=== PATIENT | male | born 1995 | race Caucasian/White ===

== ENCOUNTER 2017-07-07 20:07 | Emergency (ER) | payer BC ==
[~2017-07-07] VITALS: Ht 190.5 cm; Wt 98.9 kg
[~2017-07-07 20:07] MED LIST: AZITHROMYCIN250 MG; CLINDAMYCIN HC300 MG PO; DEXAMETHASONE4 MG PO; IBUPROFEN200 M1 PO; NORCO 5-325 TA1 EACH PO; ZOFRAN ODT4 MG PO; ZOFRAN4 MG PO
[2017-07-07] MEDS ORDERED: SUDOGEST120 MG PO (20:17)
[2017-07-07] MEDS ORDERED: ESCITALOPRAM OX20 MG PO (20:17)
[2017-07-07] MEDS ORDERED: ZINC50 M2 PO (20:18)
[2017-07-07] MEDS ORDERED: VITAMIN D2000 UNIT PO (20:19)
[2017-07-08] MEDS ORDERED: ONDANSETRON ODT8 MG PO (14:47)
== END 2017-07-07 23:45 | disposition home or self-care (01) ==
LOC: ED 20:07
DX: B34.9 Viral infection, unspecified (principal); F17.200 Nicotine dependence, unspecified, uncomplicated; F41.9 Anxiety disorder, unspecified; F32.9 Major depressive disorder, single episode, unspecified; Z79.899 Other long term (current) drug therapy; Z98.890 Other specified postprocedural states
CPT/HCPCS: 82945; 84157; 85032; 87070; 87077; 87186; 87205; 89051; 99283

== ENCOUNTER 2017-07-08 12:59 | Emergency (ER) | payer BC ==
[~2017-07-08] VITALS: Ht 190.5 cm; Wt 98.9 kg
[~2017-07-08 12:59] MED LIST changes: +ESCITALOPRAM OX20 MG PO; +SUDOGEST120 MG PO; +VITAMIN D2000 UNIT PO; +ZINC50 M2 PO
[2017-07-08] MEDS ORDERED: ONDANSETRON ODT8 MG PO (14:47)
== END 2017-07-08 15:11 | disposition home or self-care (01) ==
LOC: ED 12:59
DX: R10.9 Unspecified abdominal pain (principal); F32.9 Major depressive disorder, single episode, unspecified; Z98.890 Other specified postprocedural states; Z79.899 Other long term (current) drug therapy
CPT/HCPCS: 74177; 80053; 82150; 83690; 85025; 96361; 96374; 96375; 99284; J1170; J2405; J7030; Q9967

== ENCOUNTER 2017-07-11 15:17 | Inpatient (IN) | payer BC ==
[~2017-07-11] VITALS: Ht 190.5 cm; Wt 101.6 kg
[~2017-07-11 15:17] MED LIST changes: +ONDANSETRON ODT8 MG PO
--- NOTE | 2017-07-11 20:00 | NUR ---
RECEIVED REPORT AT 1900. FOUND PT IN BED RESTING. PT WAS COMPLAINING OF HEADACHE. PT IS STILL DUE TO VOID.
--- NOTE | 2017-07-11 22:12 | NUR ---
V/S ARE WDL, PO TYLENOL WAS GIVEN FOR HEADACHE PER ORDER. PT IS STILL DUE TO VOID. PUPILS WERE 5MM BUT REACTIVE, PERRLA WAS POSITIVE, STRENGTH IS +5. ALL LOBES ARE CLEAR, BOWEL TONES ARE ACTIVE. NO NEW PROBLEMS NOTED AT THIS TIME.
--- NOTE | 2017-07-11 23:00 | NUR ---
TALKED TO MD PIERCE ABOUT PT NOT VOIDING SINCE START OF MY SHIFT. 1000ML BOLUS LR WAS ORDERED.
--- NOTE | 2017-07-12 00:26 | NUR ---
PT IS SLEEPING AT THIS TIME.
--- NOTE | 2017-07-12 03:41 | NUR ---
PT IS SLEEPING AT THIS TIME.
--- NOTE | 2017-07-12 05:07 | NUR ---
V/S WERE WDL. PT RECEIVED 1L LR BOLUSE DUE TO LACK OF OUTPUT. WHEN BOLUS WAS DONE PT VOIDED 350ML. PAIN HAS BEEN WELL CONTROLLED WITH PO TYLENOL SO FAR. PT HAS RECEIVED TYLENOL X1 SO FAR THIS SHIFT. PT IS STEADY ON HIS FEET WHEN WALKING, PT HAS DENIED N/V SO FAR. PT IS NEUROLOGICALLY INTACT. NO NEW ISSUES NOTED.
--- NOTE | 2017-07-12 08:00 | NUR ---
FULL BODY ASSESMENT DONE. PATIENT COMPLAINING OF HEADACHE,6/10 ON PAIN SCALE. ADMINISTERED IV TORADOL AND PO TYLENOL. PATIENT STATES " ALOT OF PRESSURE IN MY HEAD". CONITNUED DROPLET PERCAUTIONS. VS STABLE. ANSWERED QUSTIONS AND CONCERNS.
--- NOTE | 2017-07-12 11:00 | NUR ---
PATIENT BROCK RESOLVED. DR. PIERCE ROUNDING ON PATIENT. DISCUSSED SPINAL FLUID BEING CONTAMINATED WITH BACTERIA FROM THE SKIN. DROPLET PERCAUTIONS DC'D. DISCUSSED SINUS INFECTION, ANTIBIOITCIS INITIATED, AND SUDAFED ADMINISTERED. PATIENT VERBALIZED UNDERSTANDING. POSSIBLE DISCHARGE TOMORROW.
--- NOTE | 2017-07-12 14:10 | NUR ---
BLOCKER HAND KACIE ADVISED NOT TO VISIT DUE TO PRECAUTIONS IN PLACE FOR PT. GOD ROJAS HIM
--- NOTE | 2017-07-12 15:08 | NUR ---
MED REC COMPLETE WITH SAFEWAY REFILL HISTORY AND PATIENT INTERVIEW.
--- NOTE | 2017-07-12 17:00 | NUR ---
PATIENT VS STABLE. CONTINUES TO HAVE MINOR BROCK, 3/10 ON PAIN SCALE. PATIENT INDEPENDANT IN ROOM. DRINKING WELL AND EATING WELL. GOOD I&O.
--- NOTE | 2017-07-12 20:10 | NUR ---
RECEIVED REPORT AT 1900. FOUND PT IN BED WATCHING TV. PT DENIED PAIN AT THAT TIME.
--- NOTE | 2017-07-12 22:20 | NUR ---
V/S ARE WDL, PT DENIES SINUS PAIN AND HEADACHE BUT STATED THAT HE HAS A LOT OF MUCUS FORM NOSE. URINE OUTPUT SINCE [id number] IS 350ML, PT IS STEADY ON HIS FEET, ALL LOBES ARE CLEAR, NO NEW ISSUES NOTED AT THIS TIME. PT RECEIVED BENADRYL 25MG PO BEFORE HE WENT TO SLEEP.
--- NOTE | 2017-07-13 00:40 | NUR ---
PT IS SLEEPING AT THIS TIME.
--- NOTE | 2017-07-13 03:00 | NUR ---
PT IS STILL SLEEPING.
--- NOTE | 2017-07-13 04:54 | NUR ---
PT HAD AN UNEVENTFUL NIGHT. PT RECEIVED BENADRYL 25MG PO FOR SLEEP AND HAS BEEN SLEEPING SINCE. V/S ARE WDL, PT HAS DENIED SINUS PAIN AND HEADACHE. URINE OUTPUT IS ADEQUATE. ALL LOBES ARE CLEAR, NEURO CHECK IS WDL. NO NEW ISSUES NOTED.
[2017-07-13] MEDS ORDERED: SUDOGEST120 MG PO (11:11)
[2017-07-13] MEDS ORDERED: FLUTICASONE PRO16 GM NAS (11:12)
[2017-07-13] MEDS ORDERED: AMOX TR-K CLV1 EAC1 PO (11:13)
--- NOTE | 2017-07-13 13:00 | NUR ---
THIS MORNING PATIENT REFUSED SHOWER BUT DID HIS OWN PARTIAL BATH. I DID GET HIM SOME MORE WATER.
== END 2017-07-13 11:53 | disposition home or self-care (01) | DRG 96 ==
LOC: ED 15:17 → MS 17:03
PROVIDERS: ADMIT Internal Medicine
DX: G00.9 Bacterial meningitis, unspecified (principal); J01.40 Acute pansinusitis, unspecified; F32.9 Major depressive disorder, single episode, unspecified; B96.89 Other specified bacterial agents as the cause of diseases classified elsewhere
CPT/HCPCS: 36415; 80053; 80202; 85025; 85651; 96374; 99285; J0696; J1885; J3370; J7060; J7120

== ENCOUNTER 2023-03-03 22:00 | Emergency (ER) | payer SELFPAY ==
[~2023-03-03] VITALS: Ht 190.5 cm; Wt 101.6 kg
[~2023-03-03 22:00] MED LIST changes: +AMOX TR-K CLV1 EAC1 PO; +FLUTICASONE PRO16 GM NAS
--- OUTSIDE RECORDS SUMMARY | 2023-03-03 22:28 | XMS ---
PreManage Notification: FLACO BERGMAN Security [employer] Events No recent Security Events currently on file CRITERIA MET - Group Notification CARE PROVIDERS There are no care providers on record at this time. Roberto has no Care Guidelines for this patient. [place] VISIT COUNT (12 MO.) 1 SERENA Brown TOTAL 1 NOTE: Visits indicate total known visits. ED/UCC VISIT TRACKING (12 MO.) 03/03/2023 22:01 SERE[facility] [place] TYPE: Emergency COMPLAINT: - MEDICAL CLEARANCE INPATIENT VISIT TRACKING (12 MO.) No inpatient visits to display in this time frame [email or web address]
[2023-03-04 00:29] VITALS: BP 150/80
== END 2023-03-04 00:42 | disposition home or self-care (01) ==
LOC: ED 22:00
DX: F32.9 Major depressive disorder, single episode, unspecified (principal); F43.10 Post-traumatic stress disorder, unspecified; F17.200 Nicotine dependence, unspecified, uncomplicated; Z79.899 Other long term (current) drug therapy
CPT/HCPCS: 99284